=== PATIENT | female | born 1985 | race Caucasian/White ===

== ENCOUNTER 2017-04-30 22:45 | Outpatient (CLI) | payer BC ==
[~2017-04-30] VITALS: Ht 160 cm; Wt 65.0 kg
[~2017-04-30 22:45] MED LIST: ASPIRIN 81M81 MG/TA2 PO; EQUALINE PRENATAL PO; NAPRELAN500 MG PO; PERCOCET 325 MG1 TA2 PO
[2017-05-01 00:22] VITALS: BP 145/68; PULSE 73; TEMP 98.3
== END 2017-04-30 23:30 | disposition home or self-care (01) ==
LOC: LDRO 22:45
DX: O26.852 Spotting complicating pregnancy, second trimester (principal); Z3A.16 16 weeks gestation of pregnancy

== ENCOUNTER 2017-06-23 11:50 | Outpatient (CLI) | payer BC ==
[~2017-06-23] VITALS: Ht 162.6 cm; Wt 70.9 kg
[2017-06-23 12:06] VITALS: BP 122/68; PULSE 71; TEMP 97.9
[2017-06-23 13:00] VITALS: BP 101/59; PULSE 63
[2017-06-23 14:00] VITALS: BP 102/59; PULSE 61
[2017-06-23 14:30] VITALS: BP 106/58; PULSE 71
[2017-06-23 15:30] VITALS: BP 108/60; PULSE 72
== END 2017-06-23 16:15 | disposition home or self-care (01) ==
LOC: LDRO 11:50 → LDR 12:00 → LDRO 16:15
DX: Z03.79 Encounter for other suspected maternal and fetal conditions ruled out (principal); W10.9XXA Fall (on) (from) unspecified stairs and steps, initial encounter; Z3A.24 24 weeks gestation of pregnancy; Z87.59 Personal history of other complications of pregnancy, childbirth and the puerperium
CPT/HCPCS: OP

== ENCOUNTER 2017-07-24 11:31 | Outpatient (CLI) | payer BC ==
[~2017-07-24] VITALS: Ht 162.6 cm; Wt 70.9 kg
[2017-07-24 11:51] VITALS: BP 113/64; PULSE 80; TEMP 98.1
== END 2017-07-24 12:15 | disposition home or self-care (01) ==
LOC: LDRO 11:31
DX: Z34.83 Encounter for supervision of other normal pregnancy, third trimester (principal); Z3A.28 28 weeks gestation of pregnancy

== ENCOUNTER 2018-10-28 22:42 | Emergency (ER) | payer BC ==
[~2018-10-28] VITALS: Ht 162.6 cm; Wt 65.9 kg
[~2018-10-28 22:42] MED LIST changes: +COLACE 100100 MG/CAP PO
[2018-10-28 22:50] VITALS: BP 119/71; TEMP 97.4
[2018-10-28 23:28] LABS: COLLECTION METHOD CLEAN CATCH
[2018-10-28 23:34] LABS: MUCOUS Present /lpf; PH 6 (5-8); SQUAMOUS EPITHELIAL 0-2 /hpf; URINE APPEARANCE Clear; URINE BACTERIA None Seen /hpf; URINE BILIRUBIN Negative (NEGATIVE); URINE BLOOD 3+ (NEGATIVE); URINE COLOR Yellow; URINE GLUCOSE Negative (NEGATIVE); URINE KETONE Negative (NEGATIVE); URINE LEUKOCYTE ESTERASE Negative (NEGATIVE); URINE NITRATE Negative (NEGATIVE); URINE PROTEIN(semi-quant) Negative (NEGATIVE); URINE RBC 20-50 /hpf; URINE UROBILINOGEN Negative (NEGATIVE)
[2018-10-28 23:47] LABS: BASO # 0.1 (0.0-0.2); BASO % 0.4 % (0.0-2.0); EOS # 0.4 (0.0-0.7); EOS % 3.4 % (0-4.0); GRAN # 8.5 (1.4-6.5); GRAN % 71.8 % (42.2-75.2); HEMATOCRIT 41.7 % (37.0-47.0); HEMOGLOBIN 13.8 g/dl (12.5-16.0); LYMPH # 2.1 (1.2-3.4); LYMPH % 17.7 % (20.0-51.0); MEAN CELL VOLUME 93 fl (80.0-100.0); MEAN CORPUSCULAR HEMOGLOBIN 31 pg (27.0-31.0); MEAN CORPUSCULAR HGB CONC 33 g/dl (33.0-37.0); MONO # 0.8 (0.1-0.6); MONO % 6.4 % (1.7-9.3); PLATELET COUNT 263 K/mm3 (130-400); REDCELL DISTRIBUTION WIDTH-CV 12.6 % (11.5-14.5)
[2018-10-29 00:01] LABS: ALBUMIN 4.3 gm/dL (3.5-5.0); BILIRUBIN,TOTAL 0.4 mg/dL (0.0-1.0); C-REACTIVE PROTEIN 1.7 mg/dL (0.0-0.9); CALCIUM 9.6 mg/dL (8.4-10.2); CREATININE, serum 0.88 mg/dL (0.52-1.25); POTASSIUM 3.7 mmol/L (3.4-5.0); TOTAL PROTEIN 7.6 gm/dL (6.4-8.2)
[2018-10-29] MEDS ORDERED: FLAGYL500 MG PO (02:03)
[2018-10-29] MEDS ORDERED: CIPRO 500MG TA500 MG PO (02:03)
[2018-10-29] MEDS ORDERED: ZOFRAN ODT4 MG PO (02:04)
[2018-10-29 02:18] VITALS: PULSE 80
== END 2018-10-29 02:19 | disposition home or self-care (01) ==
LOC: COL.ER 22:42
PROVIDERS: Emergency Medicine
DX: K50.00 Crohn's disease of small intestine without complications (principal)
CPT/HCPCS: J1885; J2405; J7030; Q9967